=== PATIENT | male | born 2005 | race Caucasian/White ===

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

== ENCOUNTER 2023-03-02 20:21 | Emergency (ER) | payer OTHER ==
[2023-03-02] MEDS ORDERED: EPINEPHrine 1 MG/ML SDV IM ONE (20:25)
[2023-03-02] MEDS ORDERED: Sodium Chloride 0.9% 10 ML Syringe FLUSH PRN (20:35)
[2023-03-02] MEDS ORDERED: methylPREDNISolone Sodium Succinate 125 MG/2 ML SDV IVPUSH ONE (20:36)
[2023-03-02] MEDS ORDERED: Sodium Chloride 0.9% 500 ML IV ONE (20:36)
[2023-03-02] MEDS ORDERED: diphenhydrAMINE 50 MG/ML SDV IVPUSH ONE (20:37)
[2023-03-02 21:22] VITALS: BP 134/68; PULSE 82
== END 2023-03-02 21:26 | disposition home or self-care (01) ==
LOC: LL.ED 20:21
DX: T63.461A Toxic effect of venom of wasps, accidental (unintentional), initial encounter (principal); J45.909 Unspecified asthma, uncomplicated; Z91.030 Bee allergy status; Z88.0 Allergy status to penicillin
CPT/HCPCS: 96372; 96374; 96375; 99283; 99283-25; J0171; J1200; J2930; J7030

== ENCOUNTER 2024-01-31 09:20 | Emergency (ER) | payer OTHER ==
[2024-01-31] MEDS: EPINEPHrine 1 MG/ML SDV IM ONE (09:24)
[2024-01-31] MEDS: diphenhydrAMINE 50 MG/ML SDV IM ONE (09:25)
[2024-01-31] MEDS: diphenhydrAMINE 50 MG/ML SDV IVPUSH ONE (09:25)
[2024-01-31] MEDS: methylPREDNISolone Sodium Succinate 125 MG/2 ML SDV IVPUSH ONE (09:25)
[2024-01-31] MEDS ORDERED: Sodium Chloride 0.9% 10 ML Syringe FLUSH PRN (09:30)
== END 2024-01-31 10:25 | disposition home or self-care (01) ==
LOC: LL.ED 09:20
DX: T78.40XA Allergy, unspecified, initial encounter (principal); Z88.0 Allergy status to penicillin; Z91.030 Bee allergy status; X58.XXXA Exposure to other specified factors, initial encounter
CPT/HCPCS: 96372; 96374; 96375; 99283-25; J0171; J1200; J2919

== ENCOUNTER 2024-01-31 20:07 | Observation (INO) | payer OTHER ==
[2024-01-31 20:45] LABS: BASOPHILS ABSOLUTE AUTO 0.02 K/uL (0.00-0.20); BASOPHILS PERCENT AUTO 0.2 % (0.0-2.0); HEMATOCRIT 44.2 % (39.0-49.0); HEMOGLOBIN 16.4 g/dL (13.1-16.8); LYMPHOCYTES ABSOLUTE AUTO 0.86 K/uL (0.50-3.50); LYMPHOCYTES PERCENT AUTO 7.8 % (10.0-50.0); MEAN CORPUSCULAR HEMOGLOBIN 30.9 pg (28.2-33.3); MEAN CORPUSCULAR HGB CONC 37.1 g/dL (31.7-36.0); MEAN CORPUSCULAR VOLUME 83.4 fL (84.0-98.0); MONOCYTES ABSOLUTE AUTO 0.07 K/uL (0.00-1.00); MONOCYTES PERCENT AUTO 0.6 % (2.0-14.0); NEUTROPHILS ABSOLUTE AUTO 10.06 K/uL (1.40-7.00); NEUTROPHILS PERCENT AUTO 91.4 % (45.0-80.0); PLATELET COUNT,PLT 312 K/uL (150-350); RED CELL DISTRIBUTION WIDTH 12.6 % (11.2-14.1)
[2024-01-31] MEDS: Cetirizine 10 MG Tab PO ONE (20:58)
[2024-01-31] MEDS: Famotidine 20 MG Tab PO ONE (20:59)
[2024-01-31] MEDS: methylPREDNISolone Sodium Succinate 125 MG/2 ML SDV IVPUSH ONE (20:59)
[2024-01-31] MEDS: Sodium Chloride 0.9% 10 ML Syringe FLUSH PRN (21:00)
[2024-01-31 21:02] LABS: ALANINE AMINOTRANSFERASE,ALT 78 U/L (12-78); ALBUMIN 4.6 g/dL (3.4-5.0); ALKALINE PHOSPHATASE 127 IU/L (46-116); ANION GAP 16.3 meq/L (7-15); ASPARTATE AMNIOTRANSFERASE,AST 20 U/L (15-37); BILIRUBIN TOTAL 1.1 mg/dL (0.2-1.0); BLOOD UREA NITROGEN,BUN 12 mg/dL (7-18); CALCIUM 9.7 mg/dL (8.5-10.1); CARBON DIOXIDE,CO2 21.7 mmol/L (21.0-32.0); CHLORIDE,CL 105 mmol/L (98-107); CREATININE 1.18 mg/dL (0.51-1.17); ESTIMATED GFR 91 mL/min (>=60); GLUCOSE RANDOM 236 mg/dL (70-99); POTASSIUM,K 3.5 mmol/L (3.5-5.1); PROTEIN TOTAL,TP 8.4 g/dL (6.4-8.2); SODIUM,NA 143 mmol/L (136-145)
[2024-01-31] MEDS: diphenhydrAMINE 25 MG Cap PO SCH (21:32)
[2024-01-31] MEDS: Cetirizine 10 MG Tab ONE (21:32)
[2024-01-31] MEDS: Sodium Chloride 0.9% 1,000 ML IV SCH (21:52)
[2024-02-01] MEDS: methylPREDNISolone Sodium Succinate 125 MG/2 ML SDV IVPUSH SCH (03:20)
[2024-02-01] MEDS: methylPREDNISolone Sodium Succinate 125 MG/2 ML SDV ONE (06:59)
[2024-02-01] MEDS: Famotidine 20 MG Tab PO ONE (08:06)
[2024-02-01] MEDS: Cetirizine 10 MG Tab PO ONE (08:06)
[2024-02-01 11:28] LABS: BLOOD UREA NITROGEN,BUN 9 mg/dL (7-18); CALCIUM 9.1 mg/dL (8.5-10.1); CHLORIDE,CL 107 mmol/L (98-107); CREATININE 0.87 mg/dL (0.51-1.17); GLUCOSE RANDOM 157 mg/dL (70-99); POTASSIUM,K 4.1 mmol/L (3.5-5.1); SODIUM,NA 143 mmol/L (136-145)
[2024-02-01 11:33] LABS: ESTIMATED GFR 127 mL/min (>=60)
[2024-02-03 14:52] LABS: TRYPTASE 4.3 ug/L (<=10.9)
== END 2024-02-01 12:00 | disposition home or self-care (01) ==
LOC: LL.ED 20:07 → LL.MS 21:59 → UNDOADMOB 21:59
PROVIDERS: ADMIT Emergency Medicine; ATTEND Emergency Medicine
DX: T78.40XA Allergy, unspecified, initial encounter (principal); J45.909 Unspecified asthma, uncomplicated; Z79.899 Other long term (current) drug therapy; Z88.0 Allergy status to penicillin; Z91.030 Bee allergy status
CPT/HCPCS: 36415; 80048; 80053; 83520; 85025; 96361; 96374; 96376; 99284; A9270-GY; G0378; J2919; J3490; J7030